=== PATIENT | female | born 1940 | race Asian ===

== ENCOUNTER 2024-03-17 12:56 | Emergency (ER) | payer MEDICARE, OTHER ==
[~2024-03-17] VITALS: Ht 152.4 cm; Wt 72.6 kg
[2024-03-17 13:04] VITALS: BP 127/67; TEMP 97.6
[2024-03-17] MEDS: IBUPROFEN 400 MG TABLET PO ONE (17:01)
[2024-03-17 17:49] VITALS: O2SAT 97
== END 2024-03-17 17:50 | disposition home or self-care (01) ==
LOC: ER 13:11
DX: M25.562 Pain in left knee (principal); M25.561 Pain in right knee; E11.9 Type 2 diabetes mellitus without complications; I11.0 Hypertensive heart disease with heart failure; I50.9 Heart failure, unspecified; Z95.2 Presence of prosthetic heart valve; W22.8XXA Striking against or struck by other objects, initial encounter; Y93.89 Activity, other specified; Y92.89 Other specified places as the place of occurrence of the external cause; Y99.8 Other external cause status
CPT/HCPCS: 73564-TC